=== PATIENT | male | born 1935 | race Caucasian/White ===

== ENCOUNTER → 2016-06-15 | Outpatient (CLI) | payer OTHER, MEDICARE ==
[~2016-06-15] MED LIST: IOPAMIDOL (ISOVUE-M 200) 20 ML VIAL IV ONE; LIDOCAINE 1% 30 ML SDV ONE; NA BICARBONATE 50 MEQ/50 ML VIAL ONE
--- NOTE | 2016-06-15 17:48 | DX ---
Lumbar Puncture, Fluoroscopy Guidance INDICATION: CT myelogram requested for severe lower buttock pain, for this patient particularly on th e left side, radiating down to the leg. Informed consent: Obtained from the patient. Risks and benefits were discussed. Cross Cutting Measure: Patient's current list of medications including all known prescriptions, over -the-counters, herbals, and vitamin/mineral/dietary supplements are reviewed. Medications' name, dos age, frequency, and route of administration are confirmed. The patient is a non-smoker. Prophylactic Antibiotic: Cefazolin was not ordered and administered for antimicrobial prophylaxis be cause it was not medically necessary. VTE Prophylaxis: There is not an order for VTE prophylaxis to be given within 24 hours of the proced ure end time. VTE prophylaxis was not given because it was not medically necessary. Technique: Patient is placed in prone position. A "timeout" procedure was performed to identify the correct patient and the correct procedure. 1% Xylocaine was used for local anesthetic. All element s of maximal sterile barrier technique including cap, mask, sterile gown, sterile gloves, large steri le sheet, hand hygiene, and 2% chlorhexidine for cutaneous antisepsis, followed. A 22-gauge spinal needle is inserted into the CSF space via interlaminar approach at L5-S1. CSF was o btained. 15 mL of Isovue-M 200 were subsequently injected intrathecally. Limited myelogram pictures are taken. Patient was then transferred to CT scan. Patient tolerated the procedure well. Fluoroscopy: 1.3 minutes, 1 image. Impression: L5-S1 intrathecal contrast injection as above for CT myelogram.
--- NOTE | 2016-06-15 23:46 | CT ---
CT Lumbar Spine, Without Contrast INDICATION: Evaluate for spinal canal stenosis. Status post prior surgery. The patient has severe sciatica pain. TECHNIQUE: 1.25-mm thin axial images are performed from T12 through the sacrum, without intravenous contrast. Intrathecal contrast was delivered earlier. Low-dose techniques are utilized. FINDINGS: The intrathecal contrast is administered at L5-S1. There is subsequent adequate delineati on of the intrathecal space and some of the neural foramina. T12-L1: There is a small central bone spur posteriorly. There is no canal or foraminal stenosis. L1-T2: There is mild bilateral facet arthropathy and ligamentum flavum hypertrophy. No significant disk bulge. Overall canal compromise is very mild. L2-L3: There is mild to moderate bilateral ligamentum flavum hypertrophy, with again overall mild ca nal compromise. No disk bulge. No foraminal stenosis. There is early disk dehydration and loss of height. L3-L4: There is moderate disk height loss, with vacuum disk phenomenon. There is moderate bilateral ligamentum flavum hypertrophy and bilateral facet arthropathy. Combined with a broad-based central disk bulge, there is severe canal stenosis. There is essentially very little intrathecal contrast th at is squeaking through this level. The central disk bulge measures 13 mm transverse x 9 mm anterior to posterior. The canal, at the tightest spot, is at most estimating 6 x 6 mm compared to the mary l 23 x 18 mm. There is severe bilateral foraminal stenosis. L4-L5: There is a central broad-based disk bulge, and exuberant bilateral facet arthropathy, right s ignificantly worse than left. Combination of these factors are causing moderate to severe canal sten osis. The smallest transverse diameter of the canal is 17 mm transverse x 5 mm anterior to posterior . L5-S1: There is a small central broad-based disk bulge. No significant canal or foraminal stenosis. IMPRESSIONS 1. Critical central canal stenosis at L3-L4 where very little contrast squeaks through. This is cau sed by broad-based disk bulge and bilateral significant ligamentum flavum hypertrophy and facet arthr opathy. 2. Moderate to severe canal stenosis at L4-L5, also due to exuberant ligamentum flavum hypertrophy and broad-based disk bulge. 3. Moderate bilateral foraminal stenosis at L3-L4 and L4-L5.
== END ==
LOC: FIMAGING 07:51
PROVIDERS: ATTEND Physician Assistant
PROC: 3E0R3KZ Introduction of Other Diagnostic Substance into Spinal Canal, Percutaneous Approach (ICD-10-PCS; principal; 2016-06-15)
DX: M48.06 Spinal stenosis, lumbar region (principal); Z01.818 Encounter for other preprocedural examination
CPT/HCPCS: 62284; 72132; 72265; Q9966

== ENCOUNTER 2016-06-21 09:45 | Observation (INO) | payer OTHER, MEDICARE ==
[~2016-06-21 09:45] MED LIST changes: +CHLORHEXIDINE GLUC HIBICLENS 118 ML BTL TP ONE; -IOPAMIDOL (ISOVUE-M 200) 20 ML VIAL IV ONE; -LIDOCAINE 1% 30 ML SDV ONE; -NA BICARBONATE 50 MEQ/50 ML VIAL ONE; +ceFAZolin 2 GM/DEXTROSE 100 ML IV ONE
[2016-06-21] MEDS ORDERED: THROMBIN (RECOMBINANT) 5,000 UNIT VIAL TP ONE (10:36)
[2016-06-21] MEDS ORDERED: BUPIVACAINE/EPI 0.25% 30 ML SDV ONE (10:36)
[2016-06-21] MEDS ORDERED: DEPO METHYLPREDNISOLONE 40 MG/ML SDV ONE (10:36)
[2016-06-21] MEDS ORDERED: BACITRACIN 50,000 UNITS/10 ML SYR IRR ONE (10:37)
[2016-06-21] MEDS ORDERED: fentaNYL 250 MCG/5 ML INJ ONE (10:40)
[2016-06-21] MEDS ORDERED: PROPOFOL/EMULSION 500 MG/50 ML BOTTLE IV ONE ×3 (10:40→14:02)
[2016-06-21] MEDS ORDERED: DEXAMETHASONE 4 MG/ML VIAL ONE (10:45)
[2016-06-21] MEDS ORDERED: CEFAZOLIN 2 GM/DEXTROSE/100 ML BAG IV ONE (11:15)
[2016-06-21 11:23] LABS: HEMATOCRIT 52.5 % (40.0-51.0); HEMOGLOBIN 17.8 g/dL (13.7-17.5); MEAN CELL HEMOGLOBIN 34.2 pg (27.9-34.1); MEAN CELL HEMOGLOBIN CONCENTR. 33.9 g/dL (32.4-36.7); MEAN CELL VOLUME 100.8 fL (81.5-99.8); RED BLOOD CELL COUNT 5.21 10^6/uL (4.40-6.38); RED CELL DISTRIBUTION WIDTH 13.7 % (11.5-15.2)
[2016-06-21 11:33] LABS: INR 1.07 (0.83-1.16); PROTIME(PATIENT) 13.8 SEC (12.0-15.0)
[2016-06-21] MEDS ORDERED: LR 1,000 ML IV ONE (11:35)
[2016-06-21 11:48] LABS: ANION GAP 11 mEq/L (8-16); CALCIUM 8.6 mg/dL (8.5-10.4); CARBON DIOXIDE 27 mEq/l (22-31); CHLORIDE 104 mEq/L (97-110); CREATININE 1.3 mg/dL (0.7-1.3); GLOMERULAR FILTRATION RATE 53; GLUCOSE 78 mg/dL (70-100); POTASSIUM 4.4 mEq/L (3.5-5.2); SODIUM 142 mEq/L (134-144)
[2016-06-21] MEDS ORDERED: SUCCINYLCHOLINE CHLORIDE*ANESTHESIA ONLY*200 MG/10 ML SYR IVP ONE (13:10)
[2016-06-21] MEDS ORDERED: oxyCODONE IR 5 MG TAB PO PRN (13:25)
[2016-06-21] MEDS ORDERED: LACTULOSE 20 GM/30 ML UDCUP PO PRN (13:25)
[2016-06-21] MEDS ORDERED: POLYETHYLENE GLYCOL 3350 17 GM PKT PO PRN (13:25)
[2016-06-21] MEDS ORDERED: ONDANSETRON 4 MG/2 ML VIAL IVP PRN (13:25)
[2016-06-21] MEDS ORDERED: ONDANSETRON DISINTEGRATING 4 MG TAB PO PRN (13:25)
[2016-06-21] MEDS ORDERED: MAGNESIUM HYDROXIDE 30 ML UDCUP PO PRN (13:25)
[2016-06-21] MEDS ORDERED: HYDROmorphONE/DILAUDID 1 MG/ML SYR IVP PRN (13:25)
[2016-06-21] MEDS ORDERED: TEMAZEPAM 15 MG CAP PO PRN (13:25)
[2016-06-21] MEDS ORDERED: morphINE PCA 30 MG/30 ML PCA IV PRN (13:25)
[2016-06-21] MEDS ORDERED: DIAZEPAM 5 MG TAB PO PRN (13:25)
[2016-06-21] MEDS ORDERED: BISACODYL 10 MG SUPP PR PRN (13:25)
[2016-06-21] MEDS ORDERED: METHOCARBAMOL 750 MG TAB PO PRN (13:25)
[2016-06-21] MEDS ORDERED: diphenhydrAMINE 25 MG CAP PO PRN (13:25)
[2016-06-21] MEDS ORDERED: HYDROCODONE/APAP 10/325 TAB PO PRN (13:25)
[2016-06-21] MEDS ORDERED: DIAZEPAM 10 MG/2 ML SYR IVP PRN (13:25)
[2016-06-21] MEDS ORDERED: ACETAMINOPHEN 325 MG TAB PO PRN (13:25)
[2016-06-21] MEDS ORDERED: NALOXONE HCL 0.4 MG/ML INJ IVP PRN (13:25)
[2016-06-21] MEDS ORDERED: NS W/ 20 KCl/L 1,000 ML IV SCH (13:30)
[2016-06-21] MEDS ORDERED: ONDANSETRON 4 MG/2 ML VIAL ONE (13:35)
[2016-06-21] MEDS ORDERED: PHENYLEPHRINE HCL 100 MCG/ML SYR ONE ×2 (13:41→14:44)
[2016-06-21] MEDS ORDERED: epHEDrine SULFATE 10 MG/ML SYR ONE (14:49)
[2016-06-21] MEDS ORDERED: fentaNYL 100 MCG/2 ML INJ ONE (16:04)
[2016-06-21] MEDS ORDERED: METHOCARBAMOL 750 MG TAB ONE (16:04)
[2016-06-21] MEDS ORDERED: PROMETHAZINE HCL 25 MG/ML INJ ONE (16:28)
[2016-06-21] MEDS ORDERED: HYDROmorphONE/DILAUDID 1 MG/ML SYR ONE (16:28)
--- NOTE | 2016-06-21 16:49 | SOAPPROG ---
SOAP Progress Note Assessment/Plan: Post Op Visit: S: Awake and alert. NAD. Pt with expected lower back pain O: AFVSS/PERRLA/EOMI no droop CN 2-12 grossly intact +lt touch 5/5 BUE/BLE = CDI A/P: 81 yo male that is s/p L3/4 laminectomy -call with any questions or concerns -take medications as directed -seen by Dr Fernández as well 06/21/16 16:45 Objective: Laboratory Results 06/21/16 11:00 06/21/16 11:00 PT 13.8 SEC (12.0-15.0) 06/21/16 11:00 INR 1.07 (0.83-1.16) 06/21/16 11:00 ICD10 Worksheet Patient Problems: Problems Problem Status Diagnosed Lumbar radicular pain Acute Lumbar stenosis Acute Ischemic cardiomyopathy Acute S/P ICD (internal cardiac defibrillator) procedure Acute Urinary tract infection Acute - ICD10 Problem Qualifiers (1) Lumbar stenosis (2) Lumbar radicular pain
[2016-06-21] MEDS ORDERED: hydrALAZINE 20 MG/ML VIAL IVP PRN (16:51)
[2016-06-21] MEDS ORDERED: hydrALAZINE 20 MG/ML VIAL ONE (16:54)
--- NOTE | 2016-06-21 17:24 | DX ---
Intraoperative fluoroscopy during lumbar spine surgery. June 21, 2016. Discussion: 6.1 seconds of intraoperative fluoroscopy utilized by Dr. Roberto Fernández during lumbar spine surgery. Lateral radiograph obtained during the procedure demonstrates placement of metallic instruments poste rior to the L3 and L4 vertebral bodies. There is intervertebral disk height loss at L5-S1. Impression: 1. Intraoperative fluoroscopy during lumbar spine surgery.
[2016-06-21] MEDS ORDERED: ceFAZolin 2 GM in D5W 100 ML IV SCH (18:00)
--- NOTE | 2016-06-21 18:04 | GOP ---
[f rep st] OPERATIVE REPORT DATE OF OPERATION: 06/21/2016 SURGEON: Radha Fernández MD TECHNICIAN [employer]: Cecilio Brown PA-C PREOPERATIVE DIAGNOSIS: Critical spinal stenosis at L3-4, chronic right lumbosacral radiculopathy, a cute left lumbosacral radiculopathy. POSTOPERATIVE DIAGNOSIS: Critical spinal stenosis at L3-4, chronic right lumbosacral radiculopathy, acute left lumbosacral radiculopathy. PROCEDURE PERFORMED: L3-4 laminectomy with bilateral medial facetectomies and decompression of the s maryjane canal for spinal stenosis (81645), microscope. FINDINGS: ESTIMATED BLOOD LOSS: 50 cc. INDICATIONS: The patient is an 81-year-old with a history of previous left-sided decompressions at L 4-5, L5-S1, who developed a new left-sided acute radiculopathy. He also had chronic right-sided disc omfort and a CT myelogram was performed, demonstrating critical stenosis at L3-4. We had discussed a n instrumented fusion as treatment for the problems in his lower back, but given the severity of the stenosis at L3-4, I thought a reasonable attempt at just simple decompression alone was warranted. T he risk of CSF leak, nerve injury, and continued symptoms was discussed. He knew that if this surger y failed to give him relief, he would likely have to consider a multilevel fusion, which is a procedu re that would need to be pursued with caution, given his medical comorbidities and advanced age. He understood our motivation for trying to solve the problem with the simple procedure, and he wanted to do this. He knew it could fail, and he may need the more extensive procedure. DESCRIPTION OF PROCEDURE: The patient was taken to the operating room, placed in supine position. G eneral anesthesia was begun. He was flipped prone onto the Galo frame. Care was taken to pad all points of contact. His back was sterilely prepped and draped in the usual fashion. A localizing x-r ay was taken. We made a 3-1/2 cm incision above the L3-4 interspace, just above his prior incision. The subcutaneous tissue was dissected using Bovie cautery down to the fascia, and a subperiosteal di ssection was made down to L3 and the rostral L4 lamina. A localizing x-ray was taken. A self-retain ing retractor was placed. We removed the inferior L3 spinous process and the very rostral portion of the L4 lamina. Under the microscope, we drilled bilateral laminectomy at L3-4, opened the ligamentu m flavum, and decompressed the thecal sac bilaterally from the inferior L3 pedicle all the way down t o the midportion of the L4 pedicle. There was critical spinal stenosis, and we alleviated this. We then swept the thecal sac medially from the left-hand side, and looked underneath the left L4 nerve r oot, and while there was a bulging L3-4 disk, there was no evidence of a free disk fragment herniatio n. We did not incise the annulus of the disk or otherwise disrupt the disk. We irrigated with antib iotic saline solution, and then closed the incision in multiple layers using Vicryl sutures. A runni ng PDS was placed in the skin itself. There were no complications. COMPLICATIONS: None. /[id number]/MODL
[2016-06-21] MEDS ORDERED: traMADol 50 MG TAB PO PRN (20:35)
[2016-06-21] MEDS: SENNOSIDES/DOCUSATE SODIUM TAB PO SCH (20:47)
[2016-06-21] MEDS: FAMOTIDINE 20 MG/NACL 50 ML IV SCH (20:48)
[2016-06-21] MEDS ORDERED: FAMOTIDINE 20 MG TAB PO PRN (21:00)
[2016-06-21] MEDS ORDERED: ZOLPIDEM TARTRATE 5 MG TAB PO SCH (21:00)
[2016-06-21] MEDS ORDERED: ATORVASTATIN CALCIUM 10 MG TAB PO SCH (21:00)
[2016-06-21] MEDS: GABAPENTIN 300 MG CAP PO SCH (22:39)
[2016-06-22 07:37] VITALS: TEMP 98.5
--- NOTE | 2016-06-22 07:43 | NEUSURGPN ---
Assessment/Plan: S: Awake. hearing aid went out so can't hear very well. Doing well though, wants to go home. O: AFVSS no droop +lt touch 5/5 BUE/BLE = CDI A/P: 81 yo male that is s/p L3/4 laminectomy -Optimize pain management -PT/OT -Discharge home later this morning -Scripts for pain meds on chart -call with any questions or concerns -seen by Dr Fernández as well - Physician Discussed Patient with : Pradeep Patient Seen by .: Pradeep Neurosurgery Physical Exam - Vitals, I&O, Labs I and O 06/21/16 06/22/16 06/23/16 05:59 05:59 05:59 Intake Total 2400 Output Total 850 325 Balance 1550 -325 Weight 68.039 kg Intake: Oral (ml) 575 IV Intake (ml) 1400 IV Infused (ml) 425 NS W/ 20 KCl/L 1,000 ml @ 375 75 mls/hr IV CONT [facility] Rx #:[id number] ceFAZolin 1 GM/DEXTROSE 50 50 ml @ 200 mls/hr IV Q8H NALLE[facility] Rx#:[id number] Output: Urine (ml) 800 325 Urinal 800 325 Estimated Blood Loss (ml) 50 Other: Number of Voids Urinal 1 1 Vital Signs Temp Pulse Resp BP Pulse Ox 36.9 C 70 14 120/70 97 06/22/16 07:36 06/22/16 07:36 06/22/16 07:36 06/22/16 07:36 06/22/16 07:36 Laboratory Results 06/21/16 11:00 06/21/16 11:00 ICD10 Worksheet Patient Problems: Problems Problem Status Diagnosed Lumbar radicular pain Acute Lumbar stenosis Acute Ischemic cardiomyopathy Acute S/P ICD (internal cardiac defibrillator) procedure Acute Urinary tract infection Acute
[2016-06-22] MEDS ORDERED: CARVEDILOL 6.25 MG TAB PO SCH (08:00)
[2016-06-22] MEDS ORDERED: LEVOTHYROXINE 88 MCG TAB PO SCH (09:00)
[2016-06-22] MEDS ORDERED: predniSONE 5 MG TAB PO SCH (09:00)
[2016-06-22] MEDS ORDERED: LISINOPRIL 5 MG TAB PO SCH (09:00)
[2016-06-22] MEDS: GABAPENTIN 300 MG CAP PO SCH (09:16)
[2016-06-22] MEDS: SENNOSIDES/DOCUSATE SODIUM TAB PO SCH (09:18)
[2016-06-22] MEDS: FAMOTIDINE 20 MG/NACL 50 ML IV SCH (10:05)
[2016-06-22 11:38] VITALS: BP 124/73; PULSE 69; RESP 15; O2SAT 93
[2016-06-24] MEDS ORDERED: ENOXAPARIN 40 MG/0.4 ML SYR SC SCH (09:00)
[2016-07-11] MEDS ORDERED: TESTOSTERONE IM 100 MG/ML SYRINGE IM SCH (21:30)
== END 2016-06-22 12:25 | disposition home or self-care (01) ==
LOC: F3N 09:45
PROVIDERS: ADMIT Neurological Surgery; ATTEND Neurological Surgery
PROC: 00NY0ZZ Release Lumbar Spinal Cord, Open Approach (ICD-10-PCS; principal; 2016-06-21 14:00)
DX: M48.06 Spinal stenosis, lumbar region (principal); M54.17 Radiculopathy, lumbosacral region
CPT/HCPCS: 63047; 76001; 97161; 97165; G8978; G8979; G8987; G8988; G8989; J0330; J0360; J0690; J1100; J1170; J2370; J2405; J2550; J2704; J3010; J1020

== ENCOUNTER → 2016-10-30 | Outpatient (CLI) | payer OTHER, MEDICARE | LOC: FIMAGING 09:17 | PROVIDERS: ATTEND Internal Medicine Gastroenterology | DX: B18.1 Chronic viral hepatitis B without delta-agent (principal); K76.89 Other specified diseases of liver; N20.0 Calculus of kidney ==

== ENCOUNTER → 2017-03-01 | Outpatient (CLI) | payer OTHER, MEDICARE | LOC: FLAB 09:25 | PROVIDERS: ATTEND Internal Medicine | DX: R63.4 Abnormal weight loss (principal) ==